=== PATIENT | female | born 1980 | race Caucasian/White ===

== ENCOUNTER → 2022-01-28 13:45 | Outpatient (BNVA) | payer OTHER, SELFPAY | PROVIDERS: PCP Family Medicine; Visit Provider Psychiatry & Neurology Psychiatry | DX: F32.3 Major depressive disorder, single episode, severe with psychotic features (principal) | CPT/HCPCS: 80053; 80061; 83036; 84443; 85025 ==

== ENCOUNTER 2024-07-08 11:35 | Inpatient (IN) | payer SELFPAY ==
[2024-07-08 11:41] VITALS: BP 163/62; PULSE 99; RESP 18; TEMP 37.1; O2SAT 98; BMI 23.0
--- NOTE | 2024-07-08 11:41 | ECG_ITS ---
[facility] Test Date: 2024-07-08 Pat Name: Jaciel Branch Department: Room: Gender: Female [employer] Pilot: : 1980 Requested By: Mamie Lam Order Number: [id number] May MD: Effie Dietz M.D. Measurements Intervals [place] Rate: 93 P: -14 [place]: 114 QRS: -5 QRSD: 90 T: 71 QT: 337 QTc: 420 Interpretive Statements SINUS RHYTHM WITH SHORT [place] INTERVAL LEFT ATRIAL ENLARGEMENT [-0.15mV P-WAVE IN V1/V2] NONSPECIFIC T-WAVE ABNORMALITY No previous ECG available for comparison Electronically Signed On 07-08-2024 15:54:05 DIELECTRIC EMBOSSING MACHINE OPERATOR by Effie Dietz M.D. [email or web address]
--- NOTE | 2024-07-08 11:44 | ED.C_ITS ---
HPI - Psych 2 General: Chief Complaint: Psychiatric Symptoms Stated Complaint: SI Time Seen by Provider: 07/08/24 11:39 History of Present Illness: 43-year-old female with a history of prosper or depression with psychotic features who presents the emergency room with suicidal thoughts. She says she feels like she is on a downward spiral. She has been hearing voices. She has been having thoughts of hurting herself and wants to hurt herself or kill herself but says she will not because of her kids. She says she is here to get some help. Related Data Previous Rx's Medication Instructions Recorded aripiprazole 5 mg tablet 5 mg PO .qhs 30 days #30 tabs 07/20/22 quetiapine 25 mg tablet 25 mg PO .qhs 30 days #30 tabs 07/20/22 Allergies Allergy/AdvReac Type Severity Reaction Status Date / Time No Known Allergies Allergy Verified 07/08/24 11:51 Review of Systems 2 Narrative: Constitutional symptoms: Negative except as documented in HPI. Skin symptoms: Negative except as documented in HPI. Eye symptoms: Negative except as documented in HPI. ENMT symptoms: Negative except as documented in HPI. Respiratory symptoms: Negative except as documented in HPI. Cardiovascular symptoms: Negative except as documented in HPI. Gastrointestinal symptoms: Negative except as documented in HPI. Genitourinary symptoms: Negative except as documented in HPI. Musculoskeletal symptoms: Negative except as documented in HPI. Neurologic symptoms: Negative except as documented in HPI. Psychiatric symptoms: Negative except as documented in HPI. Endocrine symptoms: Negative except as documented in HPI. PFS ED 2 PFSH: Medical History (Updated 07/08/24 @ 12:47 by Mamie Martinez MD) Major depressive disorder with psychotic features Physical Exam 2 Narrative: EXAM NARRATIVE: General: Alert. no acute distress Skin: Warm, dry Head: Normocephalic, atraumatic. Neck: Supple, trachea midline. Eye: Extraocular movements are intact. Ears, nose, mouth and throat: Oral mucosa moist. Cardiovascular: Regular rate and rhythm, Normal peripheral perfusion. Respiratory: Lungs are clear to auscultation, respirations are non-labored, breath sounds are equal, Symmetrical chest wall expansion. Gastrointestinal: Soft, Nontender, Non distended, Normal bowel sounds. Musculoskeletal: Normal ROM, no deformity. Patient does have a walking boot in place on her left foot. Neurological: Alert and oriented to person, place, time, and situation, No focal neurological deficit observed. Psychiatric: Cooperative, depressed, expresses suicidal ideation. Tearful Course 2 Vital Signs: Vital signs: Vital Signs Temperature 98.7 F 07/08/24 11:41 Pulse Rate 99 07/08/24 11:41 Respiratory Rate 18 07/08/24 11:41 Blood Pressure 163/62 07/08/24 11:41 Pulse Oximetry 98 07/08/24 11:41 Oxygen Delivery Me thod Room Air 07/08/24 11:41 MDM - Psych Medical Decision Making Differential diagnosis: Patient with reported depression and suicidal ideation. concerns for infection, alcohol intoxication, cardiac issues or other medical problems prior to psychiatric admission. Workup: labwork, ekg ordered to evaluate the pathologies and to clear the patient medically prior to psychiatric admission Lab Review: Laboratory results were reviewed and interpreted by myself the emergency room physician. Lab review: - Medically cleared. - EKG shows no ischemic changes. - Blood alcohol level is negative, -Tylenol and salicylate levels are negative. - Drug screen is positive for marijuana - No signs of infection, urinalysis clear and white count is not elevated - No anemia. - BUN and creatinine are within normal limits. Consultation: I discussed the patient with Dr. Sandoval who is on-call for psychiatry and he accepts the patient to the psychiatry unit. Assessment and plan: Suicidal ideation Depression Hallucinations ? 96-hour hold was placed. -Admission to neuropsychiatric unit for continued evaluation and treatment. - All lab work was reviewed and interpreted personally by myself, the ER physician - Evaluation and treatment of this problem were appropriate in the emergency setting Lab Data 07/08/24 11:59 07/08/24 11:59 Laboratory Results WBC 12.40 10^3/uL (3.29-11.43) H 07/08/24 11:59 RBC 4.75 10^6/uL (3.85-5.65) 07/08/24 11:59 Hgb 14.60 g/dL (11.27-16.99) 07/08/24 11:59 Hct 45.0 % (36-47) 07/08/24 11:59 MCV 94.7 fl (85-98) 07/08/24 11:59 MCH 30.7 pg (27-33) 07/08/24 11:59 MCHC 32.4 g/dL (30-55) 07/08/24 11:59 RDW 13.2 % (12.1-15.1) 07/08/24 11:59 Plt Count 479 10^3/cmm (157-399) H 07/08/24 11:59 MPV 8.9 fL (7.4-10.4) 07/08/24 11:59 Neut % (Auto) 65.0 % 07/08/24 11:59 Lymph % (Auto) 22.5 % 07/08/24 11:59 Gilliam % (Auto) 9.9 % 07/08/24 11:59 Eos % (Auto) 2.0 % 07/08/24 11:59 Baso % (Auto) 0.3 % 07/08/24 11:59 Neut # (Auto) 8.05 10^3/uL (1.8-7.7) H 07/08/24 11:59 Lymph # (Auto) 2.8 10^3/uL (0.8-4.8) 07/08/24 11:59 Gilliam # (Auto) 1.2 10^3/uL (0.2-0.9) H 07/08/24 11:59 Eos # (Auto) 0.3 10^3/uL (0.0-0.8) 07/08/24 11:59 Baso # (Auto) 0.0 10^3/uL (0.0-0.1) 07/08/24 11:59 Nucleated RBC % (auto) 0 % 07/08/24 11:59 Nucleated RBCs # 0.0 /100WBC 07/08/24 11:59 Sodium 135 mmol/L (136-145) L 07/08/24 11:59 Potassium 4.3 mmol/L (3.5-5.1) 07/08/24 11:59 Chloride 101 mmol/L (98-107) 07/08/24 11:59 Carbon Dioxide 25 mmol/L (22-29) 07/08/24 11:59 Anion Gap 13.3 (5-19) 07/08/24 11:59 BUN 11 mg/dL (6-20) 07/08/24 11:59 Creatinine 0.7 mg/dL (0.5-0.9) 07/08/24 11:59 GFR Calculation 90.5 mL/min (90-130) 07/08/24 11:59 Glucose 113 mg/dL (65-115) 07/08/24 11:59 Calculated Osmolality 280 mOsm/kg (285-295) L 07/08/24 11:59 Calcium 9.0 mg/dL (8.5-10.5) 07/08/24 11:59 Total Bilirubin 0.4 mg/dL (0.15-1.2) 07/08/24 11:59 AST 12 U/L (0-32) 07/08/24 11:59 ALT 15 U/L (0-33) 07/08/24 11:59 Alkaline Phosphatase 98 U/L (35-105) 07/08/24 11:59 Total Protein 7.3 g/dL (6.6-8.7) 07/08/24 11:59 Albumin 4.3 g/dL (3.5-5.2) 07/08/24 11:59 Globulin 3.0 g/dL (1.3-4.6) 07/08/24 11:59 TSH 1.58 uIU/mL (0.27-4.20) 07/08/24 11:59 HCG, Qual Negative (Negative) 07/08/24 12:09 Urine Color Dark yellow (Yellow) A 07/08/24 12:09 Urine Appearance Clear (CLEAR) 07/08/24 12:09 Urine pH 6.0 (5-7) 07/08/24 12:09 Ur Specific [place] 1.026 (1.005-1.030) 07/08/24 12:09 Urine Protein Trace (Negative) A 07/08/24 12:09 Urine Glucose (UA) Negative (Normal) 07/08/24 12:09 Urine Ketones Trace (Negative) 07/08/24 12:09 Urine Blood Negative (Negative) 07/08/24 12:09 Urine Nitrate Negative (Negative) 07/08/24 12:09 Urine Bilirubin Negative (Negative) 07/08/24 12:09 Urine Urobilinogen 1.0 mg/dL (Negative) 07/08/24 12:09 Ur Leukocyte Esterase Trace (Negative) A 07/08/24 12:09 Urine RBC 0-2 /hpf (0-2) 07/08/24 12:09 Urine WBC 0-5 /hpf (0-5) 07/08/24 12:09 Ur Squamous Epith Cells 0-5 /hpf (0-5) 07/08/24 12:09 Amorphous Sediment Not Reportable 07/08/24 12:09 Urine Bacteria None seen /hpf (NONE) 07/08/24 12:09 Hyaline Casts 0.40 /lpf 07/08/24 12:09 Salicylates 0.9 mg/dL (3-10) L 07/08/24 11:59 Urine Opiates Screen Negative ng/mL (Negative) 07/08/24 12:09 Acetaminophen < 5.0 ug/mL (10-30) L 07/08/24 11:59 Ur Barbiturates Screen Negative ng/mL (Negative) 07/08/24 12:09 Ur Phencyclidine Scrn Negative ng/mL (Negative) 07/08/24 12:09 Ur Amphetamines Screen Negative ng/mL (Negative) 07/08/24 12:09 U Benzodiazepines Scrn Positive ng/mL (Negative) H 07/08/24 12:09 Urine Cocaine Screen Negative ng/mL (Negative) 07/08/24 12:09 U Marijuana (THC) Screen Positive ng/mL (Negative) H 07/08/24 12:09 Ethyl Alcohol < 10 mg/dL (0-10) 07/08/24 11:59 No radiology studies performed this visit Discharge Plan Discharge Patient Disposition: Admitted As Inpatient Clinical Impression: Suicidal ideation, Depression Condition: Stable Coding Level of Care Code ED 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
[2024-07-08 12:06] LABS: Basophils % 0.3 %; Eosinophils # 0.3 10^3/uL (0.0-0.8); Lymphocytes # 2.8 10^3/uL (0.8-4.8); Lymphocytes % 22.5 %; Mean Corpuscular HGB Conc 32.4 g/dL (30-55); Mean Corpuscular Hemoglobin 30.7 pg (27-33); Mean Corpuscular Volume 94.7 fl (85-98); Mean Platelet Volume 8.9 fL (7.4-10.4); Monocytes # 1.2 10^3/uL (0.2-0.9); Monocytes % 9.9 %; Neutrophils # 8.05 10^3/uL (1.8-7.7); Nucleated Red Blood Cells % 0 %; Platelet Count 479 10^3/cmm (157-399); Red Blood Count 4.75 10^6/uL (3.85-5.65); Red Cell Distribution Width 13.2 % (12.1-15.1)
[2024-07-08 12:34] LABS: Alanine Aminotransferase 15 U/L (0-33); Albumin Level 4.3 g/dL (3.5-5.2); Alkaline Phosphatase 98 U/L (35-105); Anion Gap 13.3 (5-19); Aspartate Amino Transferase 12 U/L (0-32); Blood Urea Nitrogen 11 mg/dL (6-20); Carbon Dioxide 25 mmol/L (22-29); Chloride 101 mmol/L (98-107); Glomerular Filtration Rate 90.5 mL/min (90-130); Glucose 113 mg/dL (65-115); Osmolality Calculated 280 mOsm/kg (285-295); Potassium 4.3 mmol/L (3.5-5.1); Salicylate 0.9 mg/dL (3-10); Sodium 135 mmol/L (136-145); Thyroid Stimulating Hormone 1.58 uIU/mL (0.27-4.20); Total Bilirubin 0.4 mg/dL (0.15-1.2); Total Protein 7.3 g/dL (6.6-8.7)
[2024-07-08 12:38] LABS: Bilirubin Urine Negative (Negative); Blood Urine Negative (Negative); Glucose Urine UA Negative (Normal); Ketones Urine Trace (Negative); Leukocyte Esterase Urine Trace (Negative); Nitrate Urine Negative (Negative); Protein Urine Trace (Negative); Specific Gravity, Urine 1.026 (1.005-1.030); Urine Appearance Clear (CLEAR); Urine Color Dark Yellow (Yellow)
[2024-07-08 12:38] LABS: Acetaminophen < 5.0 ug/mL (10-30); Alcohol Level < 10 mg/dL (0-10)
[2024-07-08 12:41] LABS: Bacteria Urine None Seen /hpf; HCG Qualitative Urine. Negative (Negative); RBC Urine 0-2 /hpf (0-2); Squamous Epithelial Cell Urine 0-5 /hpf (0-5); WBC Urine 0-5 /hpf (0-5)
[2024-07-08 12:46] LABS: Amphetamines Screen Urine Negative (Negative); Barbiturates Screen Urine Negative (Negative); Benzodiazepines Screen Urine Positive (Negative); Cocaine Screen Urine Negative (Negative); Opiate Screen Urine Negative (Negative); PCP Screen Urine Negative (Negative); THC Screen Urine Positive (Negative)
--- NOTE | 2024-07-08 13:01 | PC.PHAR ---
Patient states she took a half of a friends Xanax this morning around 8am .. SHe said it was a half of a pink pill ,hoping it would help her.
--- NOTE | 2024-07-08 13:54 | PC.NURSE ---
96 hour hold rights read and reviewed with patient. Patient verbalized understandings. Copy of rights given to patient.
[2024-07-08 17:45] VITALS: BP 128/86; PULSE 86; RESP 16; TEMP 36.7; O2SAT 95
[2024-07-08 17:47] VITALS: BP 158/73; PULSE 101; RESP 18; O2SAT 99
[2024-07-08] MEDS: acetaminophen 325 mg Tablet 650 MG PO (18:49)
[2024-07-08] MEDS: OLANZapine 5 mg ODT PO (18:50)
--- NOTE | 2024-07-08 20:08 | PC.NURSE ---
PT ARRIVED TO THE EMERGENCY DEPARTMENT WITH COMPLAINTS OF SI, PARANOIA, AND HALLUCINATIONS. UPON ADMIT TO THE NPU PT WAS TEARFUL AND COOPERATIVE. PT STATED TO THIS NURSE I FEEL LIKE I'M GOING CRAZY. I FEEL LIKE SOMEONE IS WATCHING ME AND FOLLOWING ME. I HEAR THEIR VOICES. SOMETIMES I START RECORDING ON MY PHONE AND THE VOICES LAUGH AT ME SAYING 'THEY CAN'T HEAR US ONLY YOU CAN.' PT CONTINUES EXPLAINING WHAT SHE IS EXPERIENCING BY STATING I FEEL LIKE SOMEONE IS TRYING TO GET ME KILL MYSELF. THE ONLY REASON I HAVEN'T IS BECAUSE I MADE A PROMISE TO MY DAUGHTER. PT EXPLAINED THAT SHE PROMISED HER DAUGHTER THE LAST TIME PT HAD A SUICIDE ATTEMPT WHICH WAS IN 2009 WHERE PT OVERDOSE AND IT RESULTED IN AN EXTENDED HOSPITALIZATION THAT SHE WOULD NEVER TRY TO KILL HERSELF AGAIN. PT ALSO TOLD THIS NURSE THAT THE VOICES ARE CALLING HER A TWEAKER , STATING THEY HATE HER, AND TRYING TO GET HER TO KILL HERSELF. PT STATES THAT SHE FEELS LIKE SHE IS UNDER CONSTANT SURVEILLANCE. THROUGHOUT THE WHOLE ASSESSMENT PT WOULD OCCASIONALLY BREAK OUT INTO TEARS. PT WAS COOPERATIVE. PT IS CURRENTLY IN A BOOT ON HER LEFT FOOT DUE TO A BREAK 2 WEEKS AGO. PT REQUIRES A WHEELCHAIR AND A SITTER DUE TO THE BOOT.
[2024-07-08] MEDS: hyDROXYzine 25 mg Capsule 50 MG PO (21:47)
[2024-07-08] MEDS: trazodone 50 mg Tablet PO (21:47)
[2024-07-08 22:00] VITALS: BP 107/55; PULSE 72; RESP 16; TEMP 36.6; O2SAT 96
[2024-07-09] MEDS: acetaminophen 325 mg Tablet 650 MG PO ×4 (01:17→19:29)
[2024-07-09] MEDS: trazodone 50 mg Tablet PO ×2 (01:54→19:29)
[2024-07-09] MEDS: OLANZapine 5 mg ODT PO ×2 (01:54→12:25)
[2024-07-09] MEDS: ibuprofen 600 mg Tablet PO ×4 (03:19→22:02)
[2024-07-09 06:00] VITALS: RESP 16
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
[2024-07-09] MEDS: paliperidone ER 3 mg Tablet PO (13:37)
[2024-07-09] MEDS: hyDROXYzine 25 mg Capsule 50 MG PO (13:37)
[2024-07-09 14:00] VITALS: BP 100/52; PULSE 81; RESP 17; TEMP 36.5; O2SAT 96
[2024-07-09 21:10] VITALS: BP 102/66; PULSE 89; RESP 17; TEMP 36.9; O2SAT 97
[2024-07-10] MEDS: acetaminophen 325 mg Tablet 650 MG PO ×3 (05:36→18:26)
[2024-07-10 06:00] VITALS: BP 105/55; PULSE 84; RESP 16; TEMP 36.4; O2SAT 98
[2024-07-10] MEDS: ibuprofen 600 mg Tablet PO ×3 (08:21→20:35)
[2024-07-10] MEDS: paliperidone ER 3 mg Tablet PO (08:21)
[2024-07-10] MEDS: hyDROXYzine 25 mg Capsule 50 MG PO ×2 (11:56→20:35)
[2024-07-10] MEDS: OLANZapine 5 mg ODT PO ×2 (12:57→18:37)
--- NOTE | 2024-07-10 13:16 | PC.NURSE ---
Patient tearful in her room. Rates anxiety 5/10 patient said partially d/t pain. Administered zyprexa 5mg ODT to patient.
[2024-07-10 14:00] VITALS: BP 104/49; PULSE 81; RESP 16; TEMP 36.9; O2SAT 96
[2024-07-10 20:07] VITALS: BP 107/55; PULSE 86; RESP 16; TEMP 36.9; O2SAT 96
[2024-07-10] MEDS: trazodone 50 mg Tablet PO (20:35)
--- NOTE | 2024-07-10 20:58 | P.NPUPN_ITS ---
Subjective NPU 2 Subjective: Patient presented today reporting that she is doing okay. She reports that she got the medication and denied any side effects or any notable problems with that. She reports that she feels a little less anxious or intensity in the feelings of paranoia. She did not appear to connect that with the medication. She has not talked to anybody outside of here and we discussed the importance along the way of her to communicate with her family so that we can get their take on how she is doing given we have no past experience with her. We discussed the risks, benefits and alternatives of increasing the medication and she understood and agreed to proceed as is documented in this note. Mental Status Exam 2 MSE Comments: This is a well-nourished well-developed white female looking older than her stated age in hospital scrubs with poor grooming and adequate eye contact. Significant tattooing on exposed skin. No abnormal movements except for psychomotor retardation. Mostly cooperative with exam in mild to moderate distress. Speech was decreased rate and volume. Mood described as depressed, affect congruent, labile and tearful. Thought process organized. Thought content: Patient endorsed some suicidal ideation, no homicidal ideation, there were no delusions reported or but paranoia and persecutory delusions noted, she denied any auditory or visual hallucinations but this was because she felt that the perceptual disturbances that she is having she believes to be real. Patient exhibits signs of paranoia, hearing voices, and feeling stalked. She denies visual hallucinations. She reports struggling with depression, self-harm, and suicidal thoughts, but insists her current experiences are different. She also reports social anxiety. She denies current suicidal thoughts but expresses feelings of defeat.Attention and concentration were intact and memory was somewhat reliable but none were formally tested. She is alert and oriented x 3. Insight, judgment and impulse control are all impaired. Vitals/I&O/Wt Last Vital Signs Temp 98.5 F 07/10/24 20:07 Pulse 86 07/10/24 20:07 Resp 16 07/10/24 20:07 BP 107/55 07/10/24 20:07 Pulse Ox 96 07/10/24 20:07 O2 Del Method Room Air 07/10/24 20:07 Weight last 48 hrs Weight 58.967 kg Data NPU 07/08/24 11:59 07/08/24 11:59 A&P Assessment and plan (1) Suicidal ideation: (2) Major depressive disorder, recurrent: (3) Methamphetamine use disorder, moderate: (4) Cannabis use disorder: (5) Psychosis: Plan This is a 43-year-old white female with a long history of mental health, addiction and trauma issues. Patient presents with symptoms of paranoia, auditory hallucinations, depression, and anxiety. She has a history of substance abuse, including cannabis and methamphetamine, which could be contributing to her symptoms. 1. Started Invega 3 mg p.o. daily. Will consider increasing to 6 mg. 2. Continue every 15 minute checks for safety. 3. Encourage individual, group and milieu therapies. 4. Encourage sober living treatment after discharge at the highest level care to which she is willing to commit. 5. Obtain collateral information. Psychosis likely substance-induced by cannabis, methamphetamines or combination. Involuntary Hold Information 2 96 Hour Hold: 96 Hour Involuntary Admission: Yes Other Hold: Hold End Date: 07/14/24 Attestations NPU 2 Medical Necessity Statement*: Inpatient hospitalization is medically necessary and the clinically appropriate intervention at this time. Will monitor/initiate medications and make changes as indicated. Likely length of stay 4-7 days. Coding Level of Care Code Acute Code for [facility] Diagnoses Suicidal ideation R45.851 Major depressive disorder, recurrent F33.9 Methamphetamine use disorder, moderate F15.20 Cannabis use disorder F12.90 Psychosis F29
[2024-07-11 06:00] VITALS: BP 102/65; PULSE 94; RESP 16; TEMP 36.7; O2SAT 97
[2024-07-11] MEDS: acetaminophen 325 mg Tablet 650 MG PO ×2 (06:21→14:56)
--- NOTE | 2024-07-11 06:51 | P.NPUPN_ITS ---
Subjective NPU 2 Subjective: Patient presented today reporting that she was feeling less depressed but was having more anxiety. She continued to report less issues with intense feelings of paranoia but that some of that remains. She denied any significant side effects to the Invega and we discussed the risks, benefits and alternatives of increasing the Invega to 6 mg tomorrow and she understood and agreed to proceed as is documented in this note. We had a similar discussion about as needed propranolol for her anxiety. Mental Status Exam 2 MSE Comments: This is a well-nourished well-developed white female looking older than her stated age in hospital scrubs with poor grooming and adequate eye contact. Significant tattooing on exposed skin. No abnormal movements except for psychomotor retardation. Mostly cooperative with exam in mild to moderate distress. Speech was decreased rate and volume. Mood described as anxious, affect congruent, but much less labile and tearful. Thought process organized. Thought content: Patient endorsed some suicidal ideation, no homicidal ideation, there were no delusions reported or but paranoia and persecutory delusions noted, she denied any auditory or visual hallucinations but this was because she felt that the perceptual disturbances that she is having she believes to be real. Patient exhibits signs of paranoia, hearing voices, and feeling stalked. She denies visual hallucinations. She reports struggling with depression, self- harm, and suicidal thoughts, but insists her current experiences are different. She also reports social anxiety. She denies current suicidal thoughts but expresses feelings of defeat.Attention and concentration were intact and memory was somewhat reliable but none were formally tested. She is alert and oriented x 3. Insight, judgment and impulse control are all impaired. Vitals/I&O/Wt Last Vital Signs Temp 98.0 F 07/11/24 06:00 Pulse 94 07/11/24 06:00 Resp 16 07/11/24 06:00 BP 102/65 07/11/24 06:00 Pulse Ox 97 07/11/24 06:00 O2 Del Method Room Air 07/11/24 06:00 Data NPU 07/08/24 11:59 07/08/24 11:59 A&P Assessment and plan (1) Suicidal ideation: (2) Major depressive disorder, recurrent: (3) Methamphetamine use disorder, moderate: (4) Cannabis use disorder: (5) Psychosis: Plan This is a 43-year-old white female with a long history of mental health, addiction and trauma issues. Patient presents with symptoms of paranoia, auditory hallucinations, depression, and anxiety. She has a history of substance abuse, including cannabis and methamphetamine, which could be contributing to her symptoms. 1. Started Invega 3 mg p.o. daily. Will increase to 6 mg. Start propranolol 10 mg p.o. 3 times daily as needed for anxiety 2. Continue every 15 minute checks for safety. 3. Encourage individual, group and milieu therapies. 4. Encourage sober living treatment after discharge at the highest level care to which she is willing to commit. 5. Obtain collateral information. Psychosis likely substance-induced by cannabis, methamphetamines or combination. Involuntary Hold Information 2 96 Hour Hold: 96 Hour Involuntary Admission: Yes Other Hold: Hold End Date: 07/14/24 Attestations NPU 2 Medical Necessity Statement*: Inpatient hospitalization is medically necessary and the clinically appropriate intervention at this time. Will monitor/initiate medications and make changes as indicated. Likely length of stay 3-6 days. Coding Level of Care Code Acute Code for [facility] Fwd Diagnoses Suicidal ideation R45.851 Major depressive disorder, recurrent F33.9 Methamphetamine use disorder, moderate F15.20 Cannabis use disorder F12.90 Psychosis F29
[2024-07-11] MEDS: ibuprofen 600 mg Tablet PO ×2 (08:46→20:28)
[2024-07-11] MEDS: polyethylene glycol 3350 Pkt 17 gm PO (08:46)
[2024-07-11] MEDS: paliperidone ER 3 mg Tablet PO (08:46)
[2024-07-11] MEDS: hyDROXYzine 25 mg Capsule 50 MG PO (08:54)
[2024-07-11 13:49] VITALS: BP 95/47; PULSE 88; RESP 16; TEMP 36.7; O2SAT 96
[2024-07-11] MEDS: OLANZapine 5 mg ODT PO (15:21)
[2024-07-11 20:19] VITALS: BP 123/50; PULSE 85; RESP 18; TEMP 36.9; O2SAT 96
[2024-07-11] MEDS: trazodone 50 mg Tablet PO (20:28)
[2024-07-12] MEDS: acetaminophen 325 mg Tablet 650 MG PO ×2 (00:04→20:03)
[2024-07-12 06:00] VITALS: BP 109/66; PULSE 71; RESP 18; TEMP 37.1; O2SAT 96
[2024-07-12] MEDS: polyethylene glycol 3350 Pkt 17 gm PO (08:37)
[2024-07-12] MEDS: hyDROXYzine 25 mg Capsule 50 MG PO ×2 (08:37→16:42)
[2024-07-12] MEDS: paliperidone ER 6 mg Tablet PO (08:38)
[2024-07-12] MEDS: ibuprofen 600 mg Tablet PO ×3 (08:38→23:34)
--- NOTE | 2024-07-12 15:48 | W.PM.NPUPNS ---
Subjective NPU Subjective: Patient presented today continuing to make slow and steady improvement. She continues to endorse that she is having some anxiety and we discussed the risks, benefits and alternatives of the propranolol and she understood and agreed to proceed as is documented in this note. She denied any difficulties with the increase in the medication and denied any side effects to the medication. She endorsed not having any pressing feelings of paranoia likely she first presented. We continue to discuss the role that substances have played most likely in her presentation and the need for sober living principles moving forward. Mental Status Exam MSE Comments: This is a well-nourished well-developed white female looking older than her stated age in hospital scrubs with poor grooming and adequate eye contact. Significant tattooing on exposed skin. No abnormal movements except for psychomotor retardation. Mostly cooperative with exam in mild to moderate distress. Speech was decreased rate and volume. Mood described as anxious, affect congruent, but much less labile and tearful. Thought process organized. Thought content: Patient endorsed some suicidal ideation, no homicidal ideation, there were no delusions reported or but paranoia and persecutory delusions noted, she denied any auditory or visual hallucinations but this was because she felt that the perceptual disturbances that she is having she believes to be real. Patient exhibits signs of paranoia, hearing voices, and feeling stalked. She denies visual hallucinations. She reports struggling with depression, self-harm, and suicidal thoughts, but insists her current experiences are different. She also reports social anxiety. She denies current suicidal thoughts but expresses feelings of defeat.Attention and concentration were intact and memory was somewhat reliable but none were formally tested. She is alert and oriented x 3. Insight, judgment and impulse control are all impaired. Vitals/I&O/Wt Last Vital Signs Temp 98.7 F 07/12/24 06:00 Pulse 71 07/12/24 06:00 Resp 18 07/12/24 06:00 BP 109/66 07/12/24 06:00 Pulse Ox 96 07/12/24 06:00 O2 Del Method Room Air 07/11/24 13:49 07/12/24 07/12/24 07/12/24 06:59 14:59 22:59 Intake Total 480 / 480 Balance 480 / 480 Data NPU 07/08/24 11:59 07/08/24 11:59 A&P Assessment and plan (1) Suicidal ideation: (2) Major depressive disorder, recurrent: (3) Methamphetamine use disorder, moderate: (4) Cannabis use disorder: (5) Psychosis: Plan This is a 43-year-old white female with a long history of mental health, addiction and trauma issues. Patient presents with symptoms of paranoia, auditory hallucinations, depression, and anxiety. She has a history of substance abuse, including cannabis and methamphetamine, which could be contributing to her symptoms. 1. Started Invega 3 mg p.o. daily. Increased to 6 mg. Started propranolol 10 mg p.o. 3 times daily as needed for anxiety. 2. Continue one-to-one due to her boot/device on her foot. 3. Encourage individual, group and milieu therapies. 4. Encourage sober living treatment after discharge at the highest level care to which she is willing to commit. 5. Obtain collateral information. Psychosis likely substance-induced by cannabis, methamphetamines or combination. Involuntary Hold Information 96 Hour Hold: 96 Hour Involuntary Admission: Yes Other Hold: Hold End Date: 07/14/24 Attestations NPU Medical Necessity Statement*: Inpatient hospitalization is medically necessary and the clinically appropriate intervention at this time. Will monitor/initiate medications and make changes as indicated. Likely length of stay 2-5 days. Coding Level of Care Code Acute Code for [facility] Fw Diagnoses Suicidal ideation R45.851 Major depressive disorder, recurrent F33.9 Methamphetamine use disorder, moderate F15.20 Cannabis use disorder F12.90 Psychosis F29
[2024-07-12] MEDS: trazodone 50 mg Tablet PO (20:03)
[2024-07-12 21:31] VITALS: BP 114/56; PULSE 89; RESP 18; TEMP 37.1; O2SAT 95
[2024-07-13] MEDS: ibuprofen 600 mg Tablet PO ×3 (08:19→23:04)
[2024-07-13] MEDS: hyDROXYzine 25 mg Capsule 50 MG PO ×2 (08:20→16:59)
[2024-07-13] MEDS: paliperidone ER 6 mg Tablet PO (08:20)
[2024-07-13] MEDS: polyethylene glycol 3350 Pkt 17 gm PO (08:20)
[2024-07-13] MEDS: OLANZapine 5 mg ODT PO (11:52)
[2024-07-13] MEDS: acetaminophen 325 mg Tablet 650 MG PO ×2 (13:18→20:05)
[2024-07-13 14:00] VITALS: BP 96/50; PULSE 80; RESP 18; TEMP 36.6; O2SAT 97
--- NOTE | 2024-07-13 17:16 | P.NPUPN_ITS ---
Subjective NPU 2 Subjective: Patient presented today reporting that she has doing okay. We did talk to the family and they are aware of our position of the need for intensive sober living treatment but are not wanting to force her. We discussed the likelihood that this tomorrow she denied any side effects of medication. Mental Status Exam 2 MSE Comments: This is a well-nourished well-developed white female looking older than her stated age in hospital scrubs with poor grooming and adequate eye contact. Significant tattooing on exposed skin. No abnormal movements except for psychomotor retardation. Mostly cooperative with exam in mild to moderate distress. Speech was decreased rate and volume. Mood described as anxious, affect congruent, but much less labile and tearful. Thought process organized. Thought content: Patient endorsed some suicidal ideation, no homicidal ideation, there were no delusions reported or but paranoia and persecutory delusions noted, she denied any auditory or visual hallucinations but this was because she felt that the perceptual disturbances that she is having she believes to be real. Patient exhibits signs of paranoia, hearing voices, and feeling stalked. She denies visual hallucinations. She reports struggling with depression, self- harm, and suicidal thoughts, but insists her current experiences are different. She also reports social anxiety. She denies current suicidal thoughts but expresses feelings of defeat.Attention and concentration were intact and memory was somewhat reliable but none were formally tested. She is alert and oriented x 3. Insight, judgment and impulse control are all impaired. Vitals/I&O/Wt Last Vital Signs Temp 98 F 07/13/24 14:00 Pulse 80 07/13/24 14:00 Resp 18 07/13/24 14:00 BP 96/50 07/13/24 14:00 Pulse Ox 97 07/13/24 14:00 O2 Del Method Room Air 07/13/24 14:00 Data NPU 07/08/24 11:59 07/08/24 11:59 A&P Assessment and plan (1) Suicidal ideation: (2) Major depressive disorder, recurrent: (3) Methamphetamine use disorder, moderate: (4) Cannabis use disorder: (5) Psychosis: Plan This is a 43-year-old white female with a long history of mental health, addiction and trauma issues. Patient presents with symptoms of paranoia, auditory hallucinations, depression, and anxiety. She has a history of substance abuse, including cannabis and methamphetamine, which could be contributing to her symptoms. 1. Started Invega 3 mg p.o. daily. Increased to 6 mg. Started propranolol 10 mg p.o. 3 times daily as needed for anxiety. 2. Continue one-to-one due to her boot/device on her foot. 3. Encourage individual, group and milieu therapies. 4. Encourage sober living treatment after discharge at the highest level care to which she is willing to commit. 5. Obtain collateral information. Psychosis likely substance-induced by cannabis, methamphetamines or combination. 6. Will support family's position on discharge and consider further challenges to this plan if she were to return. Involuntary Hold Information 2 96 Hour Hold: 96 Hour Involuntary Admission: Yes Other Hold: Hold End Date: 07/14/24 Attestations NPU 2 Medical Necessity Statement*: Inpatient hospitalization is medically necessary and the clinically appropriate intervention at this time. Will monitor/initiate medications and make changes as indicated. Likely length of stay 1-3 days. Coding Level of Care Code Acute Code for [facility] Fw Diagnoses Suicidal ideation R45.851 Major depressive disorder, recurrent F33.9 Methamphetamine use disorder, moderate F15.20 Cannabis use disorder F12.90 Psychosis F29
[2024-07-13 19:37] VITALS: BP 102/64; PULSE 94; RESP 18; TEMP 36.8; O2SAT 98
[2024-07-13 22:00] VITALS: BP 102/64; PULSE 94; RESP 18; TEMP 36.8; O2SAT 98
[2024-07-13] MEDS: trazodone 50 mg Tablet PO (23:04)
[2024-07-14] MEDS: hyDROXYzine 25 mg Capsule 50 MG PO ×2 (00:31→09:09)
[2024-07-14 06:00] VITALS: BP 114/68; PULSE 81; RESP 18; TEMP 36.7; O2SAT 97
[2024-07-14] MEDS: paliperidone ER 6 mg Tablet PO (08:40)
[2024-07-14] MEDS: ibuprofen 600 mg Tablet PO (08:40)
[2024-07-14] MEDS: polyethylene glycol 3350 Pkt 17 gm PO (08:40)
[2024-07-14 13:40] VITALS: BP 114/42; PULSE 84; RESP 16; TEMP 36.8; O2SAT 97
[2024-07-14] MEDS: acetaminophen 325 mg Tablet 650 MG PO (13:47)
--- NOTE | 2024-07-14 14:15 | P.NPUDS_ITS ---
Diagnoses at Discharge Discharge Diagnosis (1) Suicidal ideation: Status: Acute (2) Major depressive disorder, recurrent: Status: Acute (3) Methamphetamine use disorder, moderate: Status: Acute (4) Cannabis use disorder: Status: Acute (5) Psychosis: Status: Acute Reason for Visit Reason for Visit: SI Involuntary Hold Information 96 Hour Hold: 96 Hour Involuntary Admission: Yes Other Hold: Hold End Date: 07/14/24 Mental Status Exam MSE Comments: This is a well-nourished well-developed white female looking older than her stated age in hospital scrubs with poor grooming and adequate eye contact. Significant tattooing on exposed skin. No abnormal movements except for psychomotor retardation. Mostly cooperative with exam in mild to moderate distress. Speech was decreased rate and volume. Mood described as anxious, affect congruent, but much less labile and tearful. Thought process organized. Thought content: Patient endorsed some suicidal ideation, no homicidal ideation, there were no delusions reported or but paranoia and persecutory delusions noted, she denied any auditory or visual hallucinations but this was because she felt that the perceptual disturbances that she is having she believes to be real. Patient exhibits signs of paranoia, hearing voices, and feeling stalked. She denies visual hallucinations. She reports struggling with depression, self- harm, and suicidal thoughts, but insists her current experiences are different. She also reports social anxiety. She denies current suicidal thoughts but expresses feelings of defeat.Attention and concentration were intact and memory was somewhat reliable but none were formally tested. She is alert and oriented x 3. Insight, judgment and impulse control are all impaired. Discharge Data Studies Completed and Pending: Laboratory Results WBC 12.40 10^3/uL (3. 29-11.43) H 07/08/24 11:59 RBC 4.75 10^6/uL (3.8 5-5.65) 07/08/24 11:59 Hgb 14.60 g/dL (11.27 -16.99) 07/08/24 11:59 Hct 45.0 % (36-47) 07/08/24 11:59 MCV 94.7 fl (85-98) 07/08/24 11:59 MCH 30.7 pg (27-33) 07/08/24 11:59 MCHC 32.4 g/dL (30-55) 07/08/24 11:59 RDW 13.2 % (12.1-15.1 ) 07/08/24 11:59 Plt Count 479 10^3/cmm (157 -399) H 07/08/24 11:59 MPV 8.9 fL (7.4-10.4) 07/08/24 11:59 Neut % (Auto) 65.0 % 07/08/24 11:59 Lymph % (Auto) 22.5 % 07/08/24 11:59 [place] % (Auto) 9.9 % 07/08/24 11:59 Eos % (Auto) 2.0 % 07/08/24 11:59 Baso % (Auto) 0.3 % 07/08/24 11:59 Neut # (Auto) 8.05 10^3/uL (1.8 -7.7) H 07/08/24 11:59 Lymph # (Auto) 2.8 10^3/uL (0.8- 4.8) 07/08/24 11:59 [place] # (Auto) 1.2 10^3/uL (0.2- 0.9) H 07/08/24 11:59 Eos # (Auto) 0.3 10^3/uL (0.0- 0.8) 07/08/24 11:59 Baso # (Auto) 0.0 10^3/uL (0.0- 0.1) 07/08/24 11:59 Nucleated RBC % (a uto) 0 % 07/08/24 11:59 Nucleated RBCs # 0.0 /100WBC 07/08/24 11:59 Sodium 135 mmol/L (136-1 45) L 07/08/24 11:59 Potassium 4.3 mmol/L (3.5-5 .1) 07/08/24 11:59 Chloride 101 mmol/L (98-10 7) 07/08/24 11:59 Carbon Dioxide 25 mmol/L (22-29) 07/08/24 11:59 Anion Gap 13.3 (5-19) 07/08/24 11:59 BUN 11 mg/dL (6-20) 07/08/24 11:59 Creatinine 0.7 mg/dL (0.5-0. 9) 07/08/24 11:59 GFR Calculation 90.5 mL/min (90-1 30) 07/08/24 11:59 Glucose 113 mg/dL (65-115 ) 07/08/24 11:59 Calculated Osmolal ity 280 mOsm/kg (285- 295) L 07/08/24 11:59 Calcium 9.0 mg/dL (8.5-10 .5) 07/08/24 11:59 Total Bilirubin 0.4 mg/dL (0.15-1 .2) 07/08/24 11:59 AST 12 U/L (0-32) 07/08/24 11:59 ALT 15 U/L (0-33) 07/08/24 11:59 Alkaline Phosphata se 98 U/L (35-105) 07/08/24 11:59 Total Protein 7.3 g/dL (6.6-8.7 ) 07/08/24 11:59 Albumin 4.3 g/dL (3.5-5.2 ) 07/08/24 11:59 Globulin 3.0 g/dL (1.3-4.6 ) 07/08/24 11:59 TSH 1.58 uIU/mL (0.27 -4.20) 07/08/24 11:59 HCG, Qual Negative (Negati ve) 07/08/24 12:09 Urine Color Dark yellow (Yel low) A 07/08/24 12:09 Urine Appearance Clear (CLEAR) 07/08/24 12:09 Urine pH 6.0 (5-7) 07/08/24 12:09 Ur Specific Gravit y 1.026 (1.005-1.0 30) 07/08/24 12:09 Urine Protein Trace (Negative) A 07/08/24 12:09 Urine Glucose (UA) Negative (Normal ) 07/08/24 12:09 Urine Ketones Trace (Negative) 07/08/24 12:09 Urine Blood Negative (Negati ve) 07/08/24 12:09 Urine Nitrate Negative (Negati ve) 07/08/24 12:09 Urine Bilirubin Negative (Negati ve) 07/08/24 12:09 Urine Urobilinogen 1.0 mg/dL (Negati ve) 07/08/24 12:09 Ur Leukocyte Olena ase Trace (Negative) A 07/08/24 12:09 Urine RBC 0-2 /hpf (0-2) 07/08/24 12:09 Urine WBC 0-5 /hpf (0-5) 07/08/24 12:09 Ur Squamous Epith Cells 0-5 /hpf (0-5) 07/08/24 12:09 Amorphous Sediment Not Reportable 07/08/24 12:09 Urine Bacteria None seen /hpf (N ONE) 07/08/24 12:09 Hyaline Casts 0.40 /lpf 07/08/24 12:09 Salicylates 0.9 mg/dL (3-10) L 07/08/24 11:59 Urine Opiates Scre en Negative ng/mL (N egative) 07/08/24 12:09 Acetaminophen < 5.0 ug/mL (10-3 0) L 07/08/24 11:59 Ur Barbiturates Sc reen Negative ng/mL (N egative) 07/08/24 12:09 Ur Phencyclidine S crn Negative ng/mL (N egative) 07/08/24 12:09 Ur Amphetamines Sc reen Negative ng/mL (N egative) 07/08/24 12:09 U Benzodiazepines Scrn Positive ng/mL (N egative) H 07/08/24 12:09 Urine Cocaine Scre en Negative ng/mL (N egative) 07/08/24 12:09 U Marijuana (THC) Screen Positive ng/mL (N egative) H 07/08/24 12:09 Ethyl Alcohol < 10 mg/dL (0-10) 07/08/24 11:59 Vitals: Last Vital Signs Temp 98.2 F 07/14/24 13:40 Pulse 84 07/14/24 13:40 Resp 16 07/14/24 13:40 BP 114/42 07/14/24 13:40 Pulse Ox 97 07/14/24 13:40 O2 Del Method Room Air 07/14/24 13:40 Discharge Plan Discharge Patient Disposition: Home Condition: Stable Prescriptions: New trazodone 50 mg Tablet 50 mg PO BEDTIME PRN (Reason: Sleep) 30 Days Qty: 30 1RF propranolol 20 mg Tablet 10 mg PO TID PRN (Reason: Anxiety) 30 Days Qty: 45 1RF olanzapine 5 mg Tablet,Disintegrating 5 mg PO DAILY PRN (Reason: Agitation/Psychosis) 30 Days Qty: 30 1RF hydroxyzine pamoate 25 mg Capsule 50 mg PO Q6H PRN (Reason: Anxiety) 30 Days Qty: 120 1RF paliperidone 6 mg Tablet Extended Release 24 Hr 6 mg PO DAILY 30 Days Qty: 30 1RF Continued ibuprofen [Advil] 200 mg Tablet 600 mg PO Q6H PRN (Reason: Pain) Discharge Orders: Discharge Order (Routine); Ordered 07/14/24 Ordered By: Ramy Sandoval Referrals: [facility] [Other] - 07/25/24 12:00 pm (Initial assessment for services with [facility]) Discharge Diet: Regular Discharge Activity: Resume usual activity Patient Instructions: Opioid Safety Discharge Attestations NPU Time Spent in Discharge Care*: less than 30 min Specific Discharge Activities: Specific discharge activities: educating patient, discussing with family independence case manager/social workers/dc planners and documenting/other paperwork Coding Level of Care Code Acute Code for [facility]wd Diagnoses Suicidal ideation R45.851 Major depressive disorder, recurrent F33.9 Methamphetamine use disorder, moderate F15.20 Cannabis use disorder F12.90 Psychosis F29
[2024-07-14 14:24] VITALS: BP 114/42; PULSE 84; RESP 16; TEMP 36.8; O2SAT 97
== END 2024-07-14 17:09 | disposition home or self-care (01) | DRG 885 ==
LOC: ER 13:23 → NP 17:33
PROVIDERS: Admitting Provider Psychiatry & Neurology Psychiatry; Emergency Provider Emergency Medicine; Visit Provider Psychiatry & Neurology Psychiatry
DX: F33.9 Major depressive disorder, recurrent, unspecified (principal); R45.851 Suicidal ideations; F15.159 Other stimulant abuse with stimulant-induced psychotic disorder, unspecified; F12.159 Cannabis abuse with psychotic disorder, unspecified; Z91.51 Personal history of suicidal behavior; Z62.810 Personal history of physical and sexual abuse in childhood; F17.290 Nicotine dependence, other tobacco product, uncomplicated
CPT/HCPCS: 36415; 80053; 80306; 80307; 81001; 81025; 84443; 85025; 93005; 97150; 97165; 99285